=== PATIENT | female | born 1945 | race Caucasian/White ===

== ENCOUNTER 2024-02-02 17:34 | Inpatient (IN) | payer BC, OTHER ==
[~2024-02-02] VITALS: Ht 154.9 cm; Wt 42.6 kg
[2024-02-02 17:44] VITALS: BP 106/70; PULSE 84; RESP 20; TEMP 97.3; O2SAT 96
[2024-02-02 17:48] VITALS: BP 89/65; PULSE 92; RESP 14; TEMP 99; O2SAT 94
[2024-02-02 18:44] LABS: APPEARANCE,URINE CLEAR (CLEAR); BILIRUBIN,URINE NEGATIVE (NEGATIVE); BLOOD, URINE 1+ (NEGATIVE); LEUKOCYTE ESTERASE ,URINE NEGATIVE (NEGATIVE); NITRITE, URINE NEGATIVE (NEGATIVE); PROTEIN,URINE NEGATIVE (NEGATIVE); UGLUCOSE NEGATIVE (NEGATIVE); UROBILINOGEN,URINE 0.2 EU/dL (0.2 - 1)
[2024-02-02 18:51] LABS: BACTERIA,URINE FEW /HPF (None Seen); COLOR,URINE AMBER (YELLOW); RBC,URINE 0-5 /HPF (0-5); SQUAMOUS EPITHELIAL CELL,UR 0-3 (FEW) /LPF (0-3 (FEW)); WBC,URINE 0-5 /HPF (0-5)
[2024-02-02 18:53] LABS: AMPHETAMINE, URINE NEGATIVE ng/ml (NEG <=1000); BARBITURATE, URINE NEGATIVE ng/ml (NEG <=200); BENZODIAZEPINE, URINE NEGATIVE ng/mL (NEG <=200); CANNABINOID, URINE NEGATIVE ng/mL (NEG <=50); COCAINE, URINE NEGATIVE ng/mL (NEG <=300); OPIATE, URINE NEGATIVE ng/mL (NEG <=2000); PHENCYCLIDINE SCREEN,URINE NEGATIVE ng/mL (NEG <=25)
[2024-02-02 19:13] LABS: ALANINE AMINOTRANSFERASE 25 U/L (12-78); ALBUMIN 3.1 g/dL (3.4-5.0); ALKALINE PHOSPHATASE 212 U/L (50-136); ANION GAP 10.6 (8-16); ASPARTATE AMINOTRANSFERASE 52 U/L (15-37); CARBON DIOXIDE 27.3 mmol/L (21-32); CHLORIDE 109 mmol/L (98-107); CREATININE 1.3 mg/dL (0.6-1.3); GLUCOSE 114 mg/dL (74-106); LIPASE 18 U/L (16-77); SODIUM SERUM 144 mmol/L (136-145); TOTAL BILIRUBIN 0.7 mg/dL (0.0-1.0); TOTAL PROTEIN, SERUM 7.2 g/dL (6.4-8.2); UREA NITROGEN, BLOOD 33 mg/dL (7-18)
[2024-02-02 19:15] LABS: POTASSIUM 2.9 mmol/L (3.5-5.1)
[2024-02-02 19:16] LABS: ACETAMINOPHEN < 0.5 ug/ml (10-30); CALCIUM 15.2 mg/dL (8.5-10.1); SALICYLATE < 2.8 mg/dL (2.8-20.0)
[2024-02-02] MEDS: LORazepam 2 MG/ML VIAL IVP ONE (19:38)
[2024-02-02 19:47] LABS: BASOPHILS % (AUTO) 0.2 % (0.0-2.0); EOSINOPHILS % (AUTO) 0.2 % (0.0-4.0); HEMATOCRIT 33.6 % (36-48); HEMOGLOBIN 11.4 g/dL (12.0-16.0); LYMPHOCYTES % (AUTO) 9.8 % (20.5-51.1); MEAN CORPUSCULAR HEMOGLOBIN 32 pg (27-31); MEAN CORPUSCULAR HGB CONC 34 g/dL (33-37); MEAN CORPUSCULAR VOLUME 92.5 fL (80-94); MONOCYTES # (AUTO) 0.7 K/uL (0.8-1.0); MONOCYTES % (AUTO) 7.2 % (1.7-9.3); NEUTROPHILS # (AUTO) 8.4 K/uL (1.8-7.7); NEUTROPHILS % (AUTO) 82.6 % (42.2-75.2); PLATELET COUNT (AUTO) 164 K/uL (140-450); RED BLOOD CELL COUNT(AUTO) 3.63 MIL/uL (4.20-5.40); RED CELL DISTRIBUTION WIDTH 13.2 % (11.6-13.7); WHITE BLOOD COUNT (AUTO) 10.1 K/uL (4.8-10.8)
[2024-02-02 20:11] VITALS: O2SAT 94
[2024-02-02] MEDS: NACL 0.9% 1,000 ML IV ONE (21:41)
[2024-02-02] MEDS: KCL 20 MEQ IN 100 mL PREMIX 200 ML IV ONE (21:59)
[2024-02-02 22:14] VITALS: O2SAT 98
[2024-02-03] VITALS (8 sets, daily range): BP systolic 144–154; BP diastolic 63–98; PULSE 71–87; RESP 18; TEMP 97.1–97.7; O2SAT 98
[2024-02-03] MEDS ORDERED: HYDROcodone/APAP 5/325 MG 1 TAB TAB PO PRN (02:55)
[2024-02-03] MEDS ORDERED: ONDANSETRON 4 MG/2 ML VIAL IVP PRN (02:55)
[2024-02-03] MEDS ORDERED: MORPHINE SULFATE 2 MG/ML SYR IVP PRN (02:55)
[2024-02-03] MEDS ORDERED: LORazepam 2 MG/ML VIAL IVP PRN (02:55)
[2024-02-03] MEDS ORDERED: AZITHROMYCIN 500 MG INJ VIAL IV ONE (03:41)
[2024-02-03] MEDS ORDERED: cefTRIAXone 1,000 MG VIAL ONE (03:41)
[2024-02-03] MEDS: NACL 0.9% 1,000 ML IV SCH (04:20)
[2024-02-03] MEDS ORDERED: ATOR10TA PO (05:49)
[2024-02-03] MEDS ORDERED: IBUP-1842 PO (05:49)
[2024-02-03] MEDS ORDERED: CEPH-588 PO (05:49)
[2024-02-03] MEDS ORDERED: ACET-2619 PO (05:49)
[2024-02-03] MEDS ORDERED: MIRABULK PO (05:49)
[2024-02-03] MEDS: AZITHROMYCIN 500 MG in DEXTROSE 5% 250 ML IV SCH (05:50)
[2024-02-03] MEDS: ACETAMINOPHEN 325 MG TAB PO PRN (21:06)
[2024-02-04] VITALS: BP 131/64; PULSE 73; PULSE 75; RESP 18; TEMP 97.5; O2SAT 98
[2024-02-04 04:00] VITALS: BP 151/74; PULSE 78; PULSE 82; RESP 18; TEMP 96.9; O2SAT 97
[2024-02-04 05:39] LABS: BASOPHILS # (AUTO) 0.1 K/uL (0.00-0.22); BASOPHILS % (AUTO) 0.5 % (0.0-2.0); EOSINOPHILS # (AUTO) 0.1 K/uL (0-0.4); EOSINOPHILS % (AUTO) 0.8 % (0.0-4.0); HEMOGLOBIN 11.7 g/dL (12.0-16.0); LYMPHOCYTES # (AUTO) 1.2 K/uL (2.5-16.5); LYMPHOCYTES % (AUTO) 10.8 % (20.5-51.1); MEAN CORPUSCULAR HEMOGLOBIN 32 pg (27-31); MEAN CORPUSCULAR HGB CONC 34 g/dL (33-37); MEAN CORPUSCULAR VOLUME 91.6 fL (80-94); MONOCYTES # (AUTO) 0.6 K/uL (0.8-1.0); MONOCYTES % (AUTO) 5.9 % (1.7-9.3); NEUTROPHILS # (AUTO) 8.9 K/uL (1.8-7.7); PLATELET COUNT (AUTO) 161 K/uL (140-450); RED BLOOD CELL COUNT(AUTO) 3.71 MIL/uL (4.20-5.40); RED CELL DISTRIBUTION WIDTH 13.2 % (11.6-13.7); WHITE BLOOD COUNT (AUTO) 10.9 K/uL (4.8-10.8)
[2024-02-04 06:07] LABS: ALANINE AMINOTRANSFERASE 18 U/L (12-78); ALBUMIN 2.9 g/dL (3.4-5.0); ALKALINE PHOSPHATASE 188 U/L (50-136); ANION GAP 12.4 (8-16); ASPARTATE AMINOTRANSFERASE 44 U/L (15-37); CHLORIDE 112 mmol/L (98-107); CREATININE 1.1 mg/dL (0.6-1.3); GLUCOSE 101 mg/dL (74-106); MAGNESIUM 1.1 mg/dL (1.8-2.4); SODIUM SERUM 148 mmol/L (136-145); TOTAL BILIRUBIN 0.7 mg/dL (0.0-1.0); TOTAL PROTEIN, SERUM 6.8 g/dL (6.4-8.2); UREA NITROGEN, BLOOD 18 mg/dL (7-18)
[2024-02-04 06:16] LABS: POTASSIUM 2.4 mmol/L (3.5-5.1)
[2024-02-04 06:18] LABS: CALCIUM 14.2 mg/dL (8.5-10.1)
[2024-02-04] MEDS ORDERED: POTASSIUM CHLORIDE 40 MEQ, LIDOCAINE 1% 25 MG in NACL 0.9% 250 ML IV ONE (06:25)
[2024-02-04 08:00] VITALS: BP 151/70; PULSE 71; PULSE 75; PULSE 89; RESP 18; TEMP 97; O2SAT 97; O2SAT 98
[2024-02-04] MEDS: POTASSIUM CHLORIDE 40 MEQ in NACL 0.9% 1,000 ML IV SCH (08:57)
[2024-02-04 12:00] VITALS: BP 140/78; PULSE 81; PULSE 83; RESP 18; TEMP 97.3; O2SAT 97
[2024-02-04] MEDS: MAG SULF 2000 MG/WATER PREMIX 100 ML IV SCH (13:10)
[2024-02-04 16:00] VITALS: BP 135/66; PULSE 83; PULSE 85; RESP 18; TEMP 98.1; O2SAT 96
[2024-02-04 20:00] VITALS: BP 145/76; PULSE 78; PULSE 84; RESP 18; TEMP 97.6; O2SAT 97; O2SAT 98
[2024-02-05] VITALS (7 sets, daily range): BP systolic 122–149; BP diastolic 55–80; PULSE 63–95; RESP 16–19; TEMP 97–97.7; O2SAT 94–100
[2024-02-05 05:49] LABS: INR 1.07 (0.8-1.2); PARTIAL THROMBOPLASTIN TIME 30.5 secs (22-35.6); PROTHROMBIN TIME 11.2 secs (10.8-13.4)
[2024-02-05 05:50] LABS: BASOPHILS % (AUTO) 0.1 % (0.0-2.0); EOSINOPHILS % (AUTO) 0.4 % (0.0-4.0); HEMATOCRIT 34.9 % (36-48); HEMOGLOBIN 11.8 g/dL (12.0-16.0); LYMPHOCYTES # (AUTO) 1.1 K/uL (2.5-16.5); LYMPHOCYTES % (AUTO) 11.9 % (20.5-51.1); MEAN CORPUSCULAR HEMOGLOBIN 31 pg (27-31); MEAN CORPUSCULAR HGB CONC 34 g/dL (33-37); MEAN CORPUSCULAR VOLUME 92.3 fL (80-94); MONOCYTES # (AUTO) 0.6 K/uL (0.8-1.0); MONOCYTES % (AUTO) 5.8 % (1.7-9.3); NEUTROPHILS # (AUTO) 7.9 K/uL (1.8-7.7); NEUTROPHILS % (AUTO) 81.8 % (42.2-75.2); PLATELET COUNT (AUTO) 158 K/uL (140-450); RED BLOOD CELL COUNT(AUTO) 3.79 MIL/uL (4.20-5.40); RED CELL DISTRIBUTION WIDTH 13.4 % (11.6-13.7); WHITE BLOOD COUNT (AUTO) 9.6 K/uL (4.8-10.8)
[2024-02-05 06:14] LABS: ALANINE AMINOTRANSFERASE 20 U/L (12-78); ALBUMIN 2.9 g/dL (3.4-5.0); ALKALINE PHOSPHATASE 188 U/L (50-136); AMYLASE 20 U/L (25-115); ANION GAP 11.1 (8-16); ASPARTATE AMINOTRANSFERASE 45 U/L (15-37); CHLORIDE 114 mmol/L (98-107); CREATININE 1.1 mg/dL (0.6-1.3); GLUCOSE 143 mg/dL (74-106); LIPASE 13 U/L (16-77); MAGNESIUM 2.8 mg/dL (1.8-2.4); PHOSPHORUS 2.4 mg/dL (2.5-4.9); POTASSIUM 4.1 mmol/L (3.5-5.1); SODIUM SERUM 147 mmol/L (136-145); TOTAL BILIRUBIN 0.5 mg/dL (0.0-1.0); TOTAL PROTEIN, SERUM 6.8 g/dL (6.4-8.2); UREA NITROGEN, BLOOD 17 mg/dL (7-18)
[2024-02-05 06:30] LABS: CALCIUM 14.3 mg/dL (8.5-10.1)
[2024-02-05] MEDS: DEXT 5% / NACL 0.45% 1,000 ML IV SCH (16:51)
[2024-02-06] VITALS (8 sets, daily range): BP systolic 115–136; BP diastolic 45–71; PULSE 55–90; RESP 16–20; TEMP 97–98.7; O2SAT 2–100
[2024-02-06 09:52] LABS: BASOPHILS % (AUTO) 0.2 % (0.0-2.0); EOSINOPHILS # (AUTO) 0.1 K/uL (0-0.4); EOSINOPHILS % (AUTO) 0.8 % (0.0-4.0); HEMATOCRIT 33.3 % (36-48); HEMOGLOBIN 11.3 g/dL (12.0-16.0); LYMPHOCYTES % (AUTO) 10.3 % (20.5-51.1); MEAN CORPUSCULAR HEMOGLOBIN 31 pg (27-31); MEAN CORPUSCULAR HGB CONC 34 g/dL (33-37); MEAN CORPUSCULAR VOLUME 92.2 fL (80-94); MONOCYTES # (AUTO) 0.6 K/uL (0.8-1.0); MONOCYTES % (AUTO) 5.6 % (1.7-9.3); NEUTROPHILS # (AUTO) 8.2 K/uL (1.8-7.7); NEUTROPHILS % (AUTO) 83.1 % (42.2-75.2); PLATELET COUNT (AUTO) 151 K/uL (140-450); RED BLOOD CELL COUNT(AUTO) 3.61 MIL/uL (4.20-5.40); RED CELL DISTRIBUTION WIDTH 13.2 % (11.6-13.7); WHITE BLOOD COUNT (AUTO) 9.9 K/uL (4.8-10.8)
[2024-02-06 10:13] LABS: ALANINE AMINOTRANSFERASE 19 U/L (12-78); ALBUMIN 2.7 g/dL (3.4-5.0); ALKALINE PHOSPHATASE 180 U/L (50-136); ANION GAP 7.3 (8-16); ASPARTATE AMINOTRANSFERASE 44 U/L (15-37); CARBON DIOXIDE 29.3 mmol/L (21-32); CHLORIDE 109 mmol/L (98-107); CREATININE 1.2 mg/dL (0.6-1.3); GLUCOSE 153 mg/dL (74-106); SODIUM SERUM 143 mmol/L (136-145); TOTAL BILIRUBIN 0.5 mg/dL (0.0-1.0); TOTAL PROTEIN, SERUM 6.5 g/dL (6.4-8.2); UREA NITROGEN, BLOOD 19 mg/dL (7-18)
[2024-02-06 10:15] LABS: POTASSIUM 2.6 mmol/L (3.5-5.1)
[2024-02-06 10:17] LABS: CALCIUM 14.1 mg/dL (8.5-10.1)
[2024-02-06] MEDS ORDERED: POTASSIUM CHLORIDE 40 MEQ in DEXT 5% /NACL 0.9% 1,000 ML IV SCH (10:35)
[2024-02-06] MEDS: KCL 20 MEQ IN 100 mL PREMIX 200 ML IV SCH (10:55)
[2024-02-06] MEDS: KCL 20 MEQ IN 100 mL PREMIX 100 ML IV SCH (15:54)
[2024-02-06] MEDS: PAMIDRONATE 60 MG in NACL 0.9% 1,000 ML IV SCH (17:50)
[2024-02-06] MEDS: CALCITONIN INJ 200 IU/ML VIAL SUBQ SCH (17:50)
[2024-02-07] VITALS (9 sets, daily range): BP systolic 106–145; BP diastolic 57–76; PULSE 62–85; RESP 17–19; TEMP 97–97.6; O2SAT 97–100
[2024-02-07 06:20] LABS: ANION GAP 9.1 (8-16); CALCIUM 11.6 mg/dL (8.5-10.1); CARBON DIOXIDE 25.9 mmol/L (21-32); CHLORIDE 110 mmol/L (98-107); CREATININE 0.9 mg/dL (0.6-1.3); GLUCOSE 130 mg/dL (74-106); SODIUM SERUM 142 mmol/L (136-145); UREA NITROGEN, BLOOD 15 mg/dL (7-18)
[2024-02-07] MEDS: POTASSIUM CHLORIDE 10 MEQ TABER PO SCH (08:56)
[2024-02-07] MEDS ORDERED: CALCITONIN INJ 200 IU/ML VIAL SUBQ SCH (09:00)
[2024-02-08] VITALS (8 sets, daily range): BP systolic 105–144; BP diastolic 37–63; PULSE 58–91; RESP 16–19; TEMP 97.1–98.5; O2SAT 97–100
[2024-02-08 05:49] LABS: BASOPHILS % (AUTO) 0.3 % (0.0-2.0); EOSINOPHILS # (AUTO) 0.1 K/uL (0-0.4); EOSINOPHILS % (AUTO) 1.2 % (0.0-4.0); HEMATOCRIT 28.9 % (36-48); HEMOGLOBIN 9.9 g/dL (12.0-16.0); LYMPHOCYTES # (AUTO) 1.3 K/uL (2.5-16.5); LYMPHOCYTES % (AUTO) 15.5 % (20.5-51.1); MEAN CORPUSCULAR HEMOGLOBIN 32 pg (27-31); MEAN CORPUSCULAR HGB CONC 35 g/dL (33-37); MEAN CORPUSCULAR VOLUME 92.1 fL (80-94); MONOCYTES # (AUTO) 0.5 K/uL (0.8-1.0); NEUTROPHILS # (AUTO) 6.4 K/uL (1.8-7.7); PLATELET COUNT (AUTO) 122 K/uL (140-450); RED BLOOD CELL COUNT(AUTO) 3.13 MIL/uL (4.20-5.40); RED CELL DISTRIBUTION WIDTH 13.1 % (11.6-13.7); WHITE BLOOD COUNT (AUTO) 8.3 K/uL (4.8-10.8)
[2024-02-08 05:53] LABS: ANION GAP 8.3 (8-16); CALCIUM 11.4 mg/dL (8.5-10.1); CARBON DIOXIDE 26.8 mmol/L (21-32); CHLORIDE 107 mmol/L (98-107); GLUCOSE 164 mg/dL (74-106); POTASSIUM 3.1 mmol/L (3.5-5.1); SODIUM SERUM 139 mmol/L (136-145); UREA NITROGEN, BLOOD 14 mg/dL (7-18)
[2024-02-08] MEDS: POTASSIUM CHLORIDE 10 MEQ TABER PO SCH (08:32)
[2024-02-08 09:07] LABS: IMMUNOGLOBULIN A 83 mg/dL (64-422); IMMUNOGLOBULIN M 32 mg/dL (26-217)
[2024-02-08 12:45] LABS: IMMUNOGLOBULIN G 1747 mg/dL (700 - 1600); PROTEIN, TOTAL, SERUM 5.7 g/dL (6.0 - 8.5)
[2024-02-08 15:07] LABS: A/G RATIO 0.8 (0.7-1.7); ALPHA-1-GLOBULIN 0.2 g/dL (0.0-0.4); ALPHA-2-GLOBULIN 0.7 g/dL (0.4-1.0); BETA GLOBULIN 0.8 g/dL (0.7-1.3); GAMMA GLOBULIN 1.6 g/dL (0.4-1.8); GLOBULIN, TOTAL 3.2 g/dL (2.2-3.9)
[2024-02-08 16:30] LABS: ALBUMIN 2.5 g/dL (3.2-5.6)
[2024-02-08 16:31] LABS: M-SPIKE 1.3 (Not Observe)
[2024-02-08] MEDS: CALCITONIN INJ 200 IU/ML VIAL SUBQ SCH (17:00)
[2024-02-09] VITALS (10 sets, daily range): BP systolic 108–128; BP diastolic 53–76; PULSE 67–110; RESP 18–20; TEMP 97–98.2; O2SAT 94–100
[2024-02-09 05:31] LABS: BASOPHILS % (AUTO) 0.4 % (0.0-2.0); EOSINOPHILS # (AUTO) 0.1 K/uL (0-0.4); EOSINOPHILS % (AUTO) 1.1 % (0.0-4.0); HEMATOCRIT 29.9 % (36-48); HEMOGLOBIN 10.2 g/dL (12.0-16.0); LYMPHOCYTES # (AUTO) 1.2 K/uL (2.5-16.5); LYMPHOCYTES % (AUTO) 14.2 % (20.5-51.1); MEAN CORPUSCULAR HEMOGLOBIN 31 pg (27-31); MEAN CORPUSCULAR HGB CONC 34 g/dL (33-37); MEAN CORPUSCULAR VOLUME 90.7 fL (80-94); MONOCYTES # (AUTO) 0.6 K/uL (0.8-1.0); MONOCYTES % (AUTO) 6.7 % (1.7-9.3); NEUTROPHILS # (AUTO) 6.4 K/uL (1.8-7.7); NEUTROPHILS % (AUTO) 77.6 % (42.2-75.2); PLATELET COUNT (AUTO) 114 K/uL (140-450); RED CELL DISTRIBUTION WIDTH 12.9 % (11.6-13.7); WHITE BLOOD COUNT (AUTO) 8.2 K/uL (4.8-10.8)
[2024-02-09 06:31] LABS: ALANINE AMINOTRANSFERASE 20 U/L (12-78); ALBUMIN 2.3 g/dL (3.4-5.0); ALKALINE PHOSPHATASE 197 U/L (50-136); ANION GAP 13.4 (8-16); ASPARTATE AMINOTRANSFERASE 38 U/L (15-37); CALCIUM 10.2 mg/dL (8.5-10.1); CARBON DIOXIDE 21.8 mmol/L (21-32); CHLORIDE 102 mmol/L (98-107); CREATININE 0.9 mg/dL (0.6-1.3); GLUCOSE 173 mg/dL (74-106); POTASSIUM 3.2 mmol/L (3.5-5.1); SODIUM SERUM 134 mmol/L (136-145); TOTAL BILIRUBIN 0.3 mg/dL (0.0-1.0); TOTAL PROTEIN, SERUM 5.8 g/dL (6.4-8.2); UREA NITROGEN, BLOOD 11 mg/dL (7-18)
[2024-02-09] MEDS: POTASSIUM CHLORIDE 20% 40 MEQ/15 ML UDC PO PRN (08:15)
[2024-02-10] VITALS (12 sets, daily range): BP systolic 100–126; BP diastolic 49–66; PULSE 62–110; RESP 16–20; TEMP 97–98.3; O2SAT 95–100
[2024-02-10 06:16] LABS: BASOPHILS % (AUTO) 0.3 % (0.0-2.0); EOSINOPHILS # (AUTO) 0.1 K/uL (0-0.4); EOSINOPHILS % (AUTO) 0.6 % (0.0-4.0); HEMATOCRIT 28.5 % (36-48); LYMPHOCYTES # (AUTO) 1.2 K/uL (2.5-16.5); LYMPHOCYTES % (AUTO) 12.7 % (20.5-51.1); MEAN CORPUSCULAR HEMOGLOBIN 32 pg (27-31); MEAN CORPUSCULAR HGB CONC 35 g/dL (33-37); MEAN CORPUSCULAR VOLUME 90.5 fL (80-94); MONOCYTES # (AUTO) 0.7 K/uL (0.8-1.0); MONOCYTES % (AUTO) 7.2 % (1.7-9.3); NEUTROPHILS # (AUTO) 7.5 K/uL (1.8-7.7); NEUTROPHILS % (AUTO) 79.2 % (42.2-75.2); PLATELET COUNT (AUTO) 137 K/uL (140-450); RED BLOOD CELL COUNT(AUTO) 3.15 MIL/uL (4.20-5.40); RED CELL DISTRIBUTION WIDTH 13.2 % (11.6-13.7); WHITE BLOOD COUNT (AUTO) 9.5 K/uL (4.8-10.8)
[2024-02-10 06:42] LABS: ALANINE AMINOTRANSFERASE 35 U/L (12-78); ALBUMIN 2.3 g/dL (3.4-5.0); ALKALINE PHOSPHATASE 255 U/L (50-136); ANION GAP 11.6 (8-16); ASPARTATE AMINOTRANSFERASE 59 U/L (15-37); CALCIUM 10.6 mg/dL (8.5-10.1); CARBON DIOXIDE 23.4 mmol/L (21-32); CHLORIDE 102 mmol/L (98-107); CREATININE 1.1 mg/dL (0.6-1.3); GLUCOSE 164 mg/dL (74-106); SODIUM SERUM 134 mmol/L (136-145); TOTAL BILIRUBIN 0.2 mg/dL (0.0-1.0); TOTAL PROTEIN, SERUM 5.7 g/dL (6.4-8.2); UREA NITROGEN, BLOOD 14 mg/dL (7-18)
[2024-02-10] MEDS ORDERED: KCL 20 MEQ IN 100 mL PREMIX 200 ML IV ONE (10:25)
[2024-02-10] MEDS: POTASSIUM CHLORIDE 40 MEQ, LIDOCAINE 1% 25 MG in NACL 0.9% 250 ML IV ONE (11:51)
[2024-02-11] VITALS (12 sets, daily range): BP systolic 102–132; BP diastolic 59–64; PULSE 72–86; RESP 16–20; TEMP 98.2–98.5; O2SAT 96–99
[2024-02-11 05:46] LABS: BASOPHILS % (AUTO) 0.3 % (0.0-2.0); EOSINOPHILS # (AUTO) 0.1 K/uL (0-0.4); EOSINOPHILS % (AUTO) 0.7 % (0.0-4.0); HEMATOCRIT 30.1 % (36-48); HEMOGLOBIN 10.4 g/dL (12.0-16.0); LYMPHOCYTES # (AUTO) 1.2 K/uL (2.5-16.5); LYMPHOCYTES % (AUTO) 14.5 % (20.5-51.1); MEAN CORPUSCULAR HEMOGLOBIN 32 pg (27-31); MEAN CORPUSCULAR HGB CONC 35 g/dL (33-37); MEAN CORPUSCULAR VOLUME 91.3 fL (80-94); MONOCYTES # (AUTO) 0.7 K/uL (0.8-1.0); MONOCYTES % (AUTO) 8.3 % (1.7-9.3); NEUTROPHILS # (AUTO) 6.4 K/uL (1.8-7.7); NEUTROPHILS % (AUTO) 76.2 % (42.2-75.2); PLATELET COUNT (AUTO) 144 K/uL (140-450); RED BLOOD CELL COUNT(AUTO) 3.29 MIL/uL (4.20-5.40); RED CELL DISTRIBUTION WIDTH 13.1 % (11.6-13.7); WHITE BLOOD COUNT (AUTO) 8.4 K/uL (4.8-10.8)
[2024-02-11 07:06] LABS: ALANINE AMINOTRANSFERASE 44 U/L (12-78); ALBUMIN 2.5 g/dL (3.4-5.0); ALKALINE PHOSPHATASE 293 U/L (50-136); ANION GAP 8.9 (8-16); ASPARTATE AMINOTRANSFERASE 54 U/L (15-37); CALCIUM 10.9 mg/dL (8.5-10.1); CARBON DIOXIDE 25.7 mmol/L (21-32); CHLORIDE 106 mmol/L (98-107); CREATININE 0.9 mg/dL (0.6-1.3); GLUCOSE 119 mg/dL (74-106); POTASSIUM 4.6 mmol/L (3.5-5.1); SODIUM SERUM 136 mmol/L (136-145); TOTAL BILIRUBIN 0.4 mg/dL (0.0-1.0); TOTAL PROTEIN, SERUM 6.1 g/dL (6.4-8.2); UREA NITROGEN, BLOOD 12 mg/dL (7-18)
[2024-02-12] VITALS (10 sets, daily range): BP systolic 112–142; BP diastolic 43–83; PULSE 67–111; RESP 17–21; TEMP 96.8–99.3; O2SAT 94–100
[2024-02-12 05:44] LABS: BASOPHILS # (AUTO) 0.1 K/uL (0.00-0.22); BASOPHILS % (AUTO) 0.6 % (0.0-2.0); EOSINOPHILS # (AUTO) 0.1 K/uL (0-0.4); EOSINOPHILS % (AUTO) 1.8 % (0.0-4.0); HEMATOCRIT 27.7 % (36-48); HEMOGLOBIN 9.7 g/dL (12.0-16.0); LYMPHOCYTES # (AUTO) 1.5 K/uL (2.5-16.5); LYMPHOCYTES % (AUTO) 18.3 % (20.5-51.1); MEAN CORPUSCULAR HEMOGLOBIN 32 pg (27-31); MEAN CORPUSCULAR HGB CONC 35 g/dL (33-37); MONOCYTES # (AUTO) 0.7 K/uL (0.8-1.0); MONOCYTES % (AUTO) 7.9 % (1.7-9.3); NEUTROPHILS % (AUTO) 71.4 % (42.2-75.2); PLATELET COUNT (AUTO) 140 K/uL (140-450); RED BLOOD CELL COUNT(AUTO) 3.05 MIL/uL (4.20-5.40); RED CELL DISTRIBUTION WIDTH 13.7 % (11.6-13.7); WHITE BLOOD COUNT (AUTO) 8.4 K/uL (4.8-10.8)
[2024-02-12 06:28] LABS: ALANINE AMINOTRANSFERASE 43 U/L (12-78); ALBUMIN 2.5 g/dL (3.4-5.0); ALKALINE PHOSPHATASE 309 U/L (50-136); ANION GAP 9.4 (8-16); ASPARTATE AMINOTRANSFERASE 52 U/L (15-37); CALCIUM 10.7 mg/dL (8.5-10.1); CARBON DIOXIDE 24.6 mmol/L (21-32); CHLORIDE 104 mmol/L (98-107); GLUCOSE 95 mg/dL (74-106); SODIUM SERUM 134 mmol/L (136-145); TOTAL BILIRUBIN 0.4 mg/dL (0.0-1.0); TOTAL PROTEIN, SERUM 5.9 g/dL (6.4-8.2); UREA NITROGEN, BLOOD 15 mg/dL (7-18)
[2024-02-12] MEDS: DEXT 5% / NACL 0.9% 1,000 ML IV SCH (08:35)
[2024-02-13] VITALS (8 sets, daily range): BP systolic 109–141; BP diastolic 37–62; PULSE 70–85; RESP 18; TEMP 97.1–97.9; O2SAT 95–98
[2024-02-13 06:44] LABS: ANION GAP 10.6 (8-16); CALCIUM 10.6 mg/dL (8.5-10.1); CARBON DIOXIDE 25.9 mmol/L (21-32); CHLORIDE 104 mmol/L (98-107); GLUCOSE 100 mg/dL (74-106); POTASSIUM 3.5 mmol/L (3.5-5.1); SODIUM SERUM 137 mmol/L (136-145); UREA NITROGEN, BLOOD 12 mg/dL (7-18)
[2024-02-14 02:14] VITALS: O2SAT 96
[2024-02-14 04:00] VITALS: BP 103/30; PULSE 76; RESP 18; TEMP 97.5; O2SAT 98
[2024-02-14 06:05] LABS: ANION GAP 11.4 (8-16); CALCIUM 10.8 mg/dL (8.5-10.1); CHLORIDE 106 mmol/L (98-107); CREATININE 0.9 mg/dL (0.6-1.3); GLUCOSE 99 mg/dL (74-106); POTASSIUM 3.4 mmol/L (3.5-5.1); SODIUM SERUM 139 mmol/L (136-145); UREA NITROGEN, BLOOD 13 mg/dL (7-18)
[2024-02-14 08:00] VITALS: BP 112/56; PULSE 78; RESP 18; TEMP 98.5; O2SAT 97
[2024-02-14 10:21] VITALS: O2SAT 93
[2024-02-14] MEDS: PAMIDRONATE 60 MG in NACL 0.9% 1,000 ML IV SCH (10:46)
[2024-02-14 13:05] LABS: IMMUNOFIXATION RESULT, SERUM ABNORMAL
[2024-02-14 13:52] VITALS: BP 112/56; PULSE 78; RESP 18; TEMP 98.5
[2024-02-14] MEDS ORDERED: DEXT 5% / NACL 0.9% 1,000 ML IV SCH (18:00)
== END 2024-02-14 14:40 | DRG 814 ==
LOC: EDBD 17:34 → MED 17:34 → MTU 02-03 02:55
PROVIDERS: ADMIT Hospitalist; ATTEND Hospitalist
DX: D47.2 Monoclonal gammopathy (principal); E43 Unspecified severe protein-calorie malnutrition; G93.41 Metabolic encephalopathy; J69.0 Pneumonitis due to inhalation of food and vomit; N17.9 Acute kidney failure, unspecified; E83.52 Hypercalcemia; N18.30 Chronic kidney disease, stage 3 unspecified; E87.6 Hypokalemia; E78.5 Hyperlipidemia, unspecified; D64.9 Anemia, unspecified; E86.0 Dehydration; Z79.899 Other long term (current) drug therapy
CPT/HCPCS: 36415; 70450; 71045; 71270; 77074; 80048; 80053; 80305; 81001; 82140; 82150; 82306; 82330; 82948; 83690; 83735; 84100; 84165; 84484; 85025; 85610; 85730; 86334; 87040; 87081; 93005; 96365; 96366; 96375; 97110; 97163-GP; 97530; 99291; 99292; G0480; J0456; J0630; J0696; J1644; J2001; J2060; J2430; J3475; J3480; J7030; J7060; Q9967

== ENCOUNTER 2024-02-26 23:30 | Inpatient (IN) | payer BC ==
[~2024-02-26] VITALS: Ht 160 cm; Wt 49.4 kg
[~2024-02-26 23:30] MED LIST: ACET-2619 PO; ATOR10TA PO; MIRABULK PO
[2024-02-26 23:36] VITALS: BP 145/80; PULSE 72; RESP 16; TEMP 97.8; O2SAT 95
[2024-02-27 00:08] LABS: BASOPHILS % (AUTO) 0.6 % (0.0-2.0); EOSINOPHILS # (AUTO) 0.1 K/uL (0-0.4); EOSINOPHILS % (AUTO) 1.9 % (0.0-4.0); HEMATOCRIT 26.6 % (36-48); HEMOGLOBIN 9.1 g/dL (12.0-16.0); LYMPHOCYTES # (AUTO) 1.5 K/uL (2.5-16.5); LYMPHOCYTES % (AUTO) 27.4 % (20.5-51.1); MEAN CORPUSCULAR HEMOGLOBIN 32 pg (27-31); MEAN CORPUSCULAR HGB CONC 34 g/dL (33-37); MONOCYTES # (AUTO) 0.4 K/uL (0.8-1.0); MONOCYTES % (AUTO) 7.7 % (1.7-9.3); NEUTROPHILS # (AUTO) 3.5 K/uL (1.8-7.7); NEUTROPHILS % (AUTO) 62.4 % (42.2-75.2); PLATELET COUNT (AUTO) 133 K/uL (140-450); RED BLOOD CELL COUNT(AUTO) 2.87 MIL/uL (4.20-5.40); RED CELL DISTRIBUTION WIDTH 14.4 % (11.6-13.7); WHITE BLOOD COUNT (AUTO) 5.6 K/uL (4.8-10.8)
[2024-02-27 00:20] LABS: ANION GAP 11.2 (8-16); CALCIUM 10.6 mg/dL (8.5-10.1); CHLORIDE 104 mmol/L (98-107); CREATININE 1.2 mg/dL (0.6-1.3); GLUCOSE 98 mg/dL (74-106); POTASSIUM 4.2 mmol/L (3.5-5.1); SODIUM SERUM 136 mmol/L (136-145); UREA NITROGEN, BLOOD 26 mg/dL (7-18)
[2024-02-27] MEDS ORDERED: cefTRIAXone 1,000 MG VIAL ONE (01:15)
[2024-02-27] MEDS: cefTRIAXone 1,000 MG in DEXT 5% MINI-BAG PLUS 50 ML IV ONE (01:26)
[2024-02-27] MEDS ORDERED: ONDANSETRON 4 MG/2 ML VIAL IVP PRN (02:45)
[2024-02-27] MEDS ORDERED: ACETAMINOPHEN 325 MG TAB PO PRN (02:45)
[2024-02-27] MEDS ORDERED: ALBUTEROL 0.083% 2.5 MG/3 ML NEBU INH PRN (02:45)
[2024-02-27] MEDS ORDERED: AZITHROMYCIN 250 MG in DEXTROSE 5% 250 ML IV SCH (03:30)
[2024-02-27 07:56] VITALS: PULSE 73; RESP 20; O2SAT 97
[2024-02-27 08:00] VITALS: O2SAT 96
[2024-02-27] MEDS: MORPHINE SULFATE 2 MG/ML SYR IVP PRN (09:48)
[2024-02-27 12:00] VITALS: O2SAT 98
[2024-02-27 12:30] VITALS: PULSE 83; RESP 17; O2SAT 97
[2024-02-27 12:35] VITALS: PULSE 83
[2024-02-27] MEDS ORDERED: DOXY-690 PO (18:54)
[2024-02-27 20:00] VITALS: BP 125/65; PULSE 68; PULSE 85; RESP 17; TEMP 98; O2SAT 92
[2024-02-27] MEDS: ALPRAZolam 0.5 MG TAB PO PRN (21:18)
[2024-02-28] VITALS (9 sets, daily range): BP systolic 109–143; BP diastolic 5–72; PULSE 65–87; RESP 17–19; TEMP 97.2–98.2; O2SAT 95–98
[2024-02-28 06:12] LABS: BASOPHILS % (AUTO) 0.7 % (0.0-2.0); EOSINOPHILS # (AUTO) 0.1 K/uL (0-0.4); EOSINOPHILS % (AUTO) 2.5 % (0.0-4.0); HEMATOCRIT 26.5 % (36-48); HEMOGLOBIN 9.2 g/dL (12.0-16.0); LYMPHOCYTES % (AUTO) 18.4 % (20.5-51.1); MEAN CORPUSCULAR HEMOGLOBIN 32 pg (27-31); MEAN CORPUSCULAR HGB CONC 35 g/dL (33-37); MEAN CORPUSCULAR VOLUME 92.3 fL (80-94); MONOCYTES # (AUTO) 0.5 K/uL (0.8-1.0); MONOCYTES % (AUTO) 8.2 % (1.7-9.3); NEUTROPHILS # (AUTO) 3.9 K/uL (1.8-7.7); NEUTROPHILS % (AUTO) 70.2 % (42.2-75.2); PLATELET COUNT (AUTO) 136 K/uL (140-450); RED BLOOD CELL COUNT(AUTO) 2.87 MIL/uL (4.20-5.40); RED CELL DISTRIBUTION WIDTH 14.2 % (11.6-13.7); WHITE BLOOD COUNT (AUTO) 5.6 K/uL (4.8-10.8)
[2024-02-28 06:38] LABS: ALANINE AMINOTRANSFERASE 63 U/L (12-78); ALBUMIN 2.6 g/dL (3.4-5.0); ALKALINE PHOSPHATASE 381 U/L (50-136); ANION GAP 12.5 (8-16); ASPARTATE AMINOTRANSFERASE 56 U/L (15-37); CHLORIDE 102 mmol/L (98-107); CREATININE 1.1 mg/dL (0.6-1.3); GLUCOSE 91 mg/dL (74-106); POTASSIUM 4.5 mmol/L (3.5-5.1); SODIUM SERUM 135 mmol/L (136-145); TOTAL BILIRUBIN 0.3 mg/dL (0.0-1.0); TOTAL PROTEIN, SERUM 6.7 g/dL (6.4-8.2); UREA NITROGEN, BLOOD 24 mg/dL (7-18)
[2024-02-28] MEDS: AZITHROMYCIN 250 MG in DEXTROSE 5% 250 ML IV SCH (08:37)
[2024-02-28] MEDS: ASPIRIN 81 MG TAB.CHEW PO SCH (08:37)
[2024-02-29] VITALS: BP 137/63; PULSE 70; PULSE 72; RESP 18; TEMP 97.7; O2SAT 95
[2024-02-29 04:00] VITALS: BP 117/60; PULSE 71; PULSE 73; RESP 18; TEMP 97.6; O2SAT 95
[2024-02-29 07:20] VITALS: O2SAT 95
[2024-02-29 08:00] VITALS: BP 131/68; PULSE 66; PULSE 68; RESP 17; TEMP 97.7; O2SAT 95; O2SAT 96
== END 2024-02-29 13:51 | DRG 178 ==
LOC: MED 23:30 → MTU 02-27 02:48 → MMU 02-27 12:13
PROVIDERS: ADMIT Hospitalist; ATTEND Hospitalist
DX: J69.0 Pneumonitis due to inhalation of food and vomit (principal); C90.00 Multiple myeloma not having achieved remission; R64 Cachexia; Z68.1 Body mass index [BMI] 19.9 or less, adult; J18.9 Pneumonia, unspecified organism; E11.9 Type 2 diabetes mellitus without complications; D47.2 Monoclonal gammopathy; Z79.899 Other long term (current) drug therapy
CPT/HCPCS: 36415; 71045; 80048; 80053; 83880; 84484; 85025; 87040; 87081; 93005; 96365; 99285; J0456; J0696; J1644; J2270; J7060; Q0092